=== PATIENT | female | born 1960 | race Caucasian/White ===

== ENCOUNTER 2022-05-28 06:50 | Inpatient (IN) ==
[~2022-05-28 06:50] MED LIST: Buffered Lidocaine 1% SYRIN 1 ml INTRADERM ONE; HYDROmorphone 1 MG/1 ML SYRINGE IV PRN; Lactated Ringers 1000 ml BAG 1,000 ML IV SCH; Naloxone 0.4 mg VIAL 0.4 mg/ml 1 ml VIAL IV PRN; Ondansetron 4 mg VIAL 2 MG/ML 2 ml VIAL IV PRN
[2022-05-28] MEDS ORDERED: ceFAZolin 2 GM in NS PREMIX 2 GM/100 ML BAG IVPB ONE (07:38)
[2022-05-28 07:45] LABS: INR 1.04 (0.89-1.11)
[2022-05-28 08:07] LABS: Activated Partial Thrombo Time 41.4 seconds (26.0-38.0)
[2022-05-28] MEDS ORDERED: ROPIVACAINE 5 MG/ML 30 ML BTL (0.5%) ONE (08:09)
[2022-05-28] MEDS ORDERED: Dexamethasone IV 4 MG/ML VIAL 1 ml VIAL ONE (08:10)
[2022-05-28] MEDS ORDERED: Midazolam 2 mg/2 ml VIAL 1 mg/ml 2 ml VIAL (2 mg) ONE ×2 (08:10→08:24)
[2022-05-28] MEDS ORDERED: Lidocaine 1% MPF 5 ML VIAL ONE (08:20)
[2022-05-28] MEDS ORDERED: Ropivacaine 5 MG/ML 20 ML VIAL 0.5% (100 MG) ONE (08:50)
[2022-05-28] MEDS ORDERED: fentaNYL 100 mcg/2 ml 50 MCG/ML VIAL ONE (09:26)
[2022-05-28] MEDS ORDERED: Propofol 10 MG/ML 20 ML BTL ONE (11:21)
[2022-05-28] MEDS ORDERED: Magnesium Hydroxide LIQ 30 ML UDC PO PRN (11:32)
[2022-05-28] MEDS ORDERED: Ondansetron ODT 4 mg TAB 4 MG TAB PO PRN (11:32)
[2022-05-28] MEDS ORDERED: Ondansetron 4 mg VIAL 2 MG/ML 2 ml VIAL IV PRN (11:32)
[2022-05-28] MEDS ORDERED: Morphine 2 MG/ML SYRINGE IV PRN (11:32)
[2022-05-28] MEDS ORDERED: Lactulose 30 ml UDC PO PRN (11:32)
[2022-05-28] MEDS: Lactated Ringers 1000 ml BAG 1,000 ML IV SCH ×2 (13:13→18:32)
[2022-05-28] MEDS ORDERED: Lactated Ringers 500 ml BAG 500 ML IV ONE (14:18)
[2022-05-28] MEDS: ceFAZolin 1 GM ADVAN 1 GM in NS 0.9% 50 ML 50 ML IVPB SCH (17:05)
[2022-05-28] MEDS: Magnesium Hydroxide LIQ 30 ML UDC PO SCH (21:01)
[2022-05-29] MEDS: ceFAZolin 1 GM ADVAN 1 GM in NS 0.9% 50 ML 50 ML IVPB SCH ×2 (01:55→09:15)
[2022-05-29 05:09] LABS: Hematocrit 34 % (35-47); Hemoglobin 11.2 g/dL (12.0-16.0); Mean Platelet Volume 9.1 fL (7.4-10.4); Platelet Count 209 10^3/uL (150-450)
[2022-05-29 05:23] LABS: Calcium 8.1 mg/dL (8.6-10.3); Potassium 4.6 mmol/L (3.5-5.0); eGFR CKD-EPI 68.2 (>60)
[2022-05-29] MEDS: Lactated Ringers 1000 ml BAG 1,000 ML IV SCH (05:37)
[2022-05-29] MEDS ORDERED: Vitamin THERAPEUTIC TAB PO SCH (09:00)
[2022-05-29] MEDS: Magnesium Hydroxide LIQ 30 ML UDC PO SCH (09:17)
[2022-05-29 11:19] VITALS: BP 111/67
== END 2022-05-29 12:00 | disposition home or self-care (01) | DRG 302 ==
LOC: AA 06:50 → INTOOBSV 06:50 → OBSVTOIN 06:50 → SSU 13:21
PROVIDERS: ADMIT Orthopaedic Surgery Adult Reconstructive Orthopaedic Surgery; ATTEND Orthopaedic Surgery Adult Reconstructive Orthopaedic Surgery